=== PATIENT | male | born 1965 | race Caucasian/White ===

== ENCOUNTER 2017-02-09 11:17 | Observation (INO) | payer OTHER ==
--- NOTE | 2017-02-09 11:34 | UCPHY ---
H & P Patient Type: New Smoking Status: Former smoker Time Seen by Provider: 02/09/17 11:32 HPI/ROS: CHIEF COMPLAINT: Allergic reaction HPI: The patient is a 52-year-old male with a history of BOR syndrome with subsequent renal transplantation. The patient had dental work done yesterday and he took a dose of clindamycin as prophylaxis. This morning he awoke with severe total body itching, skin redness and hives. He describes feeling like his tongue was bigger than normal but is not have any difficulty swallowing. Patient states he had a mild similar reaction to clindamycin the last time he took it. REVIEW OF SYSTEMS: Aside from elements discussed in the HPI, a comprehensive 10-point review of systems was reviewed and is negative. PMH: Renal transplant. No history of heart disease that he knows of. SOCIAL HISTORY: Denies alcohol or drug abuse. FAMILY HISTORY: Reviewed, noncontributory PHYSICAL EXAM: General:Patient is alert, in no acute distress. ENT:Eyes are normal to inspection. Abnormal external ear shape noted. No drooling, normal voice, normal size tongue. Neck: Normal inspection. Full range of motion. Respiratory:No respiratory distress. Breath sounds normal bilaterally. Cardiovascular: Regular rate and rhythm. Strong peripheral pulses. Normal cap refill. Abdomen:The abdomen is nontender to palpation. There are no peritoneal signs. There are normal bowel sounds. Back: Normal to inspection. No tenderness to palpation. Skin: Diffuse erythema and mild urticaria is noted throughout trunk and extremities. Extremities: Normal appearance. Full range of motion. Neuro: Oriented x3. Normal motor function. Normal sensory function. (Bonilla Munoz) Constitutional: Initial Vital Signs Temperature (C) 36.6 C 02/09/17 11:28 Heart Rate 80 02/09/17 11:28 Respiratory Rate 18 02/09/17 11:28 Blood Pressure 125/80 H 02/09/17 11:28 O2 Sat (%) 97 02/09/17 11:28 O2 Delivery Mode Room Air O2 (L/minute) 2 Allergies/Adverse Reactions: clindamycin Allergy (Severe, Verified 02/09/17 17:49) Swelling/neck,face,throat Penicillins Allergy (Severe, Verified 02/09/17 17:49) Swelling/neck,face,throat Home Medications: Medication Instructions Recorded Allopurinol [Allopurinol (RX)] 300 mg PO HS 01/24/12 Losartan Potassium [Cozaar] 50 mg PO HS 01/24/12 Pantoprazole Sodium [Protonix 40mg 40 mg PO HS 01/24/12 (RX)] amLODIPine BESYLATE [Norvasc (RX)] 10 mg PO HS 01/24/12 Mycophenolate Mofetil [Cellcept 750 mg PO HS 11/05/12 250 mg (RX)] cycloSPORINE [Cyclosporine] 100 mg PO HS 02/09/17 predniSONE [predniSONE] 10 mg PO HS 02/09/17 Medical Decision Making - Diagnostics EKG Interpretation: Repeat EKG performed at 3:27 p.m.-indication ongoing chest discomfort with elevated troponin rule out interval change Sinus rhythm at 79 with normal intervals normal ST segments by my interpretation -overall assessment normal EKG please refer to trace InGaugeIt for complete read. ( Duke Ulloa) EKG was ordered and interpreted by myself. Please see Bag Borrow or Steal system for official reading. NSR, no ST elevation. (Bonilla Munoz) ED Course/Re-evaluation: 3:15 p.m. 3rd troponin is elevated to .064. Patient is comfortable with subtle discomfort still present in his chest-1/10 NTG dose increased to 1 inch of paste given persistent, subtle discomfort. I discussed his positive troponin with him explaining my concerns about myocardial injury and potential ongoing ischemia warranting admission. Patient agrees to be admitted to [facility] for further evaluation. Patient also treated with aspirin 324 mg PO After consulting Corey, mid-level practitioner & Dr. Wren, [place] [facility] cardiology - gave the patient 12.5 mg of metoprolol orally. They also requested that a echocardiogram be performed upon arrival at [facility] look for wall motion abnormalities. I spoke with Dr. Lin -hospitalist at [facility] who will accept the patient for admission to the [facility] and ordered the echo to be performed upon arrival. The patient is kept NPO with transfer pending. At 3:45 p.m. transport is called transfer the patient to the [facility] patient has persistent in mild-1 a 10 chest discomfort but declines further analgesia at this time and is hemodynamically stable (Duke Ulloa) With history of renal transplant, I consulted Dr. Trinidad from Nephrology to determine if epinephrine and solumedrol were safe for administration in a patient with history of renal transplant - he says they are from a renal standpoint. Shortly after administration of epinephrine, patient began to complain of severe substernal and epigastric pain. I ordered a stat ECG which is normal, without signs of ST elevation or arrhythmia. He also developed nausea and vomiting. We treated him with nitrogylcerin, zofran and morphine. Patient feeling better after meds at 12:15pm. Patient is declining transport to an ER at this time, but would prefer [facility] if necessary. 1:00pm, paitent still feeling better. VSS. Repeat ECG normal, again without signs of STEMI. I had an extensive discussion with the patient and recommended transfer to the ER for further monitoring, cardiology consultation and likely admission. He refuses. We agreed on a plan for further observation here and repeat troponin. 2:15pm - patient asymptomatic. Repeat troponin technically negative, but definitely higher than initial value. The patient continues to refuse transfer to the ER. He agrees to stay for one more rapid-cycle repeat troponin. 3:00pm - I have signed the patient out to Dr. Ulloa pending repeat troponin. (Bonilla Munoz) - Data Points Laboratory Results: Laboratory Results 02/09/17 11:41 02/09/17 11:41 Medications Given: Discontinued Medications Aspirin (Aspirin) 324 mg PO EDNOW ONE Stop: 02/09/17 15:30 Last Admin: 02/09/17 15:57 Dose: 324 mg Diphenhydramine HCl (Benadryl Injection) 50 mg IVP EDNOW ONE Stop: 02/09/17 11:47 Last Admin: 02/09/17 12:16 Dose: 50 mg Epinephrine HCl (Epinephrine) 0.3 mg IM EDNOW ONE Stop: 02/09/17 11:47 Last Admin: 02/09/17 12:17 Dose: 0.3 mg Sodium Chloride (Ns) 1,000 mls @ 0 mls/hr IV ONCE ONE PRN Reason: Wide Open Stop: 02/09/17 11:47 Last Admin: 02/09/17 12:00 Dose: 1,000 mls Sodium Chloride (Ns) 1,000 mls @ 3,000 mls/hr IV ONCE ONE Stop: 02/09/17 15:56 Last Admin: 02/09/17 15:45 Dose: 1,000 mls Methylprednisolone Sodium Succinate (Solu-Medrol) 125 mg IVP EDNOW ONE Stop: 02/09/17 11:47 Last Admin: 02/09/17 12:17 Dose: 125 mg Metoprolol Tartrate (Lopressor) 12.5 mg PO EDNOW ONE Stop: 02/09/17 15:35 Last Admin: 02/09/17 15:51 Dose: 12.5 mg Nitroglycerin (Nitro-Bid 2%) 0.5 inch TP EDNOW ONE Stop: 02/09/17 12:07 Last Admin: 02/09/17 12:09 Dose: 0.5 inch Ondansetron HCl (Zofran) 4 mg IVP EDNOW ONE Stop: 02/09/17 12:07 Last Admin: 02/09/17 12:08 Dose: 4 mg Departure - Departure Disposition: [facility] Inpatient Acute Clinical Impression: Anaphylaxis, Chest pain, Acute coronary syndrome Condition: Good Instructions: Anaphylaxis (ED) - PQRS PQRS Measurement: 134: Depression screening and followup, PRIME MD-PHQ2 (12 years and older) Over the last 2 weeks, how often have you been bothered by any of the following problems? 1. Feeling down, depressed, or hopeless? 2. Little interest or pleasure in doing things? Patient answered no to both 1 and 2 130: Documentation of medications. Reviewed all patient medications, doses, route and frequency. 226: Do you smoke? No. 51: 18 years old and older with diagnosis of COPD, spirometry performance. Spirometry not performed; equipment not available. Patient has no history of COPD 52: 18 years old and older with COPD and symptoms of COPD or FEV1<60% predicted prescribed a B Agonist. Spirometry not performed; equipment not available. (Bonilla Munoz)
[2017-02-09] MEDS ORDERED: methylPREDNISolone SOD SUCC 125 MG/2 ML VIAL IVP ONE (11:46)
[2017-02-09] MEDS ORDERED: NS 1,000 ML IV ONE ×2 (11:46→15:37)
--- NOTE | 2017-02-09 12:05 | CPEKG ---
Heart Rate: 90 RR Interval: 667 P-R Interval: 132 QRSD Interval: 90 QT Interval: 348 QTC Interval: 426 P Lewis: 77 QRS Lewis: 59 T Wave Lewis: 65 EKG Severity - OTHERWISE NORMAL ECG - EKG Impression: SINUS RHYTHM EKG Impression: ATRIAL PREMATURE COMPLEX Electronically Signed By: Lawrence Mancilla 10-Feb-2017 08:51:40
[2017-02-09] MEDS ORDERED: ONDANSETRON 4 MG/2 ML VIAL IVP ONE (12:06)
[2017-02-09] MEDS ORDERED: ONDANSETRON 4 MG/2 ML VIAL ONE (12:06)
[2017-02-09] MEDS ORDERED: NITROGLYCERIN 2% 1 GM PACKET TP ONE (12:06)
[2017-02-09 12:13] LABS: % IMMATURE GRANULYOCYTES 0.4 % (0.0-1.1); ABSOLUTE IMMATURE GRANULOCYTES 0.05 10^3/uL (0.00-0.10); ADD DIFF? NO; ADD MORPH? NO; ADD SCAN? NO; ATYPICAL LYMPHOCYTE FLAG 0 (0-99); FRAGMENT RBC FLAG 0 (0-99); HEMATOCRIT 39.5 % (40.0-51.0); HEMOGLOBIN 13.4 g/dL (13.7-17.5); LEFT SHIFT FLG 0 (0-99); LIPEMIA HEMOLYSIS FLAG 90 (0-99); MEAN CELL HEMOGLOBIN 32.1 pg (27.9-34.1); MEAN CELL HEMOGLOBIN CONCENTR. 33.9 g/dL (32.4-36.7); MEAN CELL VOLUME 94.7 fL (81.5-99.8); PLATELET CLUMPS FLAG 10 (0-99); PLATELET COUNT 314 10^3/uL (150-400); RED BLOOD CELL COUNT 4.17 10^6/uL (4.40-6.38); RED CELL DISTRIBUTION WIDTH 13.9 % (11.5-15.2)
[2017-02-09 12:24] LABS: ANION GAP 13 mEq/L (8-16); CALCIUM 8.8 mg/dL (8.5-10.4); CARBON DIOXIDE 20 mEq/l (22-31); CHLORIDE 106 mEq/L (97-110); CREATININE 1.1 mg/dL (0.7-1.3); GLOMERULAR FILTRATION RATE > 60; GLUCOSE 77 mg/dL (70-100); POTASSIUM 3.9 mEq/L (3.5-5.2); SODIUM 139 mEq/L (134-144)
[2017-02-09 12:39] LABS: TROPONIN I < 0.012 ng/mL (0-0.034)
--- NOTE | 2017-02-09 12:51 | CPEKG ---
Heart Rate: 83 RR Interval: 723 P-R Interval: 144 QRSD Interval: 90 QT Interval: 380 QTC Interval: 447 P Harrison: 66 QRS Harrison: 29 T Wave Harrison: 50 EKG Severity - NORMAL ECG - EKG Impression: SINUS RHYTHM Electronically Signed By: Lawrence Mancilla 10-Feb-2017 08:52:09
[2017-02-09 15:10] LABS: TROPONIN I 0.064 ng/mL (0-0.034)
[2017-02-09] MEDS ORDERED: ASPIRIN 81 MG CHEWABLE TAB PO ONE (15:29)
--- NOTE | 2017-02-09 15:29 | CPEKG ---
Heart Rate: 79 RR Interval: 759 P-R Interval: 140 QRSD Interval: 86 QT Interval: 364 QTC Interval: 418 P Lerona: 60 QRS Lerona: 23 T Wave Lerona: 43 EKG Severity - NORMAL ECG - EKG Impression: SINUS RHYTHM Electronically Signed By: Duke Ulloa 09-Feb-2017 15:53:35
[2017-02-09] MEDS ORDERED: METOPROLOL TARTRATE 25 MG TAB PO ONE (15:34)
[2017-02-09] MEDS ORDERED: ACETAMINOPHEN 325 MG TAB PO PRN (15:37)
[2017-02-09] MEDS ORDERED: ONDANSETRON DISINTEGRATING 4 MG TAB PO PRN (15:37)
[2017-02-09] MEDS ORDERED: diphenhydrAMINE 25 MG CAP PO PRN (15:37)
[2017-02-09] MEDS ORDERED: ONDANSETRON 4 MG/2 ML VIAL IVP PRN (15:37)
--- NOTE | 2017-02-09 18:42 | GHP ---
[f rep st] HISTORY AND PHYSICAL DATE OF ADMISSION: 02/09/2017 CHIEF COMPLAINT: Chest pain. HISTORY OF PRESENT ILLNESS: A 52-year-old male with a history of BOR syndrome, who is status post r enal transplant and received prophylactic clindamycin for a dental appointment for which he develope d a full body rash and ultimately throat swelling that prompted his visiting an urgent care. In the urgent care, patient received appropriate therapy for allergic reaction which include epinephrine. Soon after the administration of epinephrine, the patient developed severe substernal chest pain th at he described as 10/10, like a horse kicking him in the chest, and associated shortness of breath, some dizziness, nausea, and vomiting. The patient had some relief in his symptoms and then recurre nce. Laboratories were checked in the acute care. The patient was found to have a minimal elevatio n in his troponin and was therefore transitioned from acute care with nitroglycerin paste on his giovanny st over to [facility] for further evaluation. Upon arrival to the PCU, the patient is still experiencing 1/10 epigastric, subxiphoid chest discomfort. Denies any shortness of breath. Denies any active nausea. No vomiting. Denies abdominal pain. Reports medication compliance at home with his meds, and denies any difficulty with these medications. The patient does not have chr onic limitations in his activity secondary to chest pain or shortness of breath. The patient denies any changes in his bowel habits, urinary complications, or lower extremity edema. The patient has taken clindamycin one time before and did develop some rash at the time, but not any of the shortnes s of breath and tongue swelling. Those symptoms have resolved since his treatment in the urgent car e. PAST MEDICAL HISTORY: 1. BOR syndrome. 2. Status post renal transplant. 3. Hypertension since his transplant. SOCIAL HISTORY: Negative for tobacco. Rare alcohol. Maybe 1 drink twice a week. No illicit drugs or marijuana. FAMILY HISTORY: Negative for any kidney problems or transplant. ADVANCED DIRECTIVES: Patient is full cor, full tube. REVIEW OF SYSTEMS: A 10-point review of systems is negative with the exception of that reported in the HPI. PHYSICAL EXAMINATION: VITAL SIGNS: Blood pressure 112/80, heart rate 80, respiratory rate 18, 97% on 2 L, 36.6. GENERAL: This is a very healthy-appearing, middle-aged male in no acute distress. H EENT: Notable for moist mucous membranes. Eye exam is negative for any icterus. CARDIAC: Patient is regular rate and rhythm. No murmurs, gallops, or rubs. PULMONARY: Patient has good respirator y effort. Clear to auscultation bilaterally. GASTROINTESTINAL: Positive bowel sounds. Abdomen is soft. MUSCULOSKELETAL: Negative for any lower extremity edema. SKIN: Exam is negative for any r ashes. NEUROLOGIC: He is alert and oriented x3. PSYCHIATRIC: He is pleasant and cooperative on i nterview and examination. DATA: White count 14.1, hematocrit 39.5, platelets of 314. Troponin was less than 0.012 and bumped to 0.06. Creatinine was 1.1. Chest x-ray, which I personally reviewed and interpreted, shows no acute infiltrates or edema. EKG, which I personally reviewed and interpreted, shows sinus rhythm, normal axis, intervals with no acute ST-T changes. ASSESSMENT AND PLAN: This is a 52-year-old male with branchiootorenal syndrome who presents with ch est pain after administration of epinephrine for an allergic reaction. 1. Acute chest pain. The patient's EKG is without changes. Mild troponin elevation certainly conc erning for possible flow limiting stenosis in his coronary system provoked by basal spasm with epine phrine. The patient will be admitted, have serial troponins, followed, and have telemetry monitorin g. Cardiology has been consulted and we are ordering a stat echocardiogram. If there segmental wal l motion abnormalities, the patient will be taken directly to catheterization. Otherwise monitored overnight for evaluation in the morning. 2. Branchiootorenal syndrome. The patient will continue on his normal immunosuppressive regimen fo r his renal transplant after his medications are reconciled. 3. Hypertension. Patient is presenting with normal blood pressures at this time. Again, we will c ontinue home medications if appropriate. 4. Leukocytosis. I suspect this is likely provoked by the steroids the patient received in the urg ent care. We will recheck a CBC in the morning to verify that it comes down. He does not have othe r concerning symptoms for occult infection. 5. Prophylaxis with Lovenox. 6. Diet: Cardiac. DISPOSITION: I expect in less than 2 midnights if the patient's monitoring is stable and risk strat ification is successful. I have discussed the case with the urgent care physician. Patient will be triaged to the PCU for cardiac monitoring. /[id number]/MODL
[2017-02-09] MEDS: ENOXAPARIN 40 MG/0.4 ML SYR SC SCH (19:04)
[2017-02-09] MEDS ORDERED: cycloSPORINE 100 MG CAP PO SCH ×2 (21:07→21:30)
[2017-02-09] MEDS ORDERED: MYCOPHENOLATE MOFETIL 250 MG CAP PO SCH (21:30)
[2017-02-09] MEDS ORDERED: predniSONE 10 MG TAB PO SCH (21:30)
[2017-02-09] MEDS ORDERED: ALLOPURINOL 300 MG TAB PO SCH (21:30)
[2017-02-09] MEDS ORDERED: PANTOPRAZOLE SODIUM 40 MG TAB PO SCH (21:30)
[2017-02-09] MEDS ORDERED: LOSARTAN POTASSIUM 50 MG TAB PO SCH (21:30)
[2017-02-10 04:49] LABS: % IMMATURE GRANULYOCYTES 0.6 % (0.0-1.1); ABSOLUTE IMMATURE GRANULOCYTES 0.11 10^3/uL (0.00-0.10); ADD DIFF? NO; ADD MORPH? NO; ADD SCAN? NO; ATYPICAL LYMPHOCYTE FLAG 0 (0-99); FRAGMENT RBC FLAG 0 (0-99); HEMATOCRIT 34.9 % (40.0-51.0); HEMOGLOBIN 11.6 g/dL (13.7-17.5); LEFT SHIFT FLG 10 (0-99); LIPEMIA HEMOLYSIS FLAG 80 (0-99); MEAN CELL HEMOGLOBIN 32.1 pg (27.9-34.1); MEAN CELL HEMOGLOBIN CONCENTR. 33.2 g/dL (32.4-36.7); MEAN CELL VOLUME 96.7 fL (81.5-99.8); MEAN PLATELET VOLUME 11.1 fL (8.7-11.7); PLATELET CLUMPS FLAG 0 (0-99); PLATELET COUNT 243 10^3/uL (150-400); RED BLOOD CELL COUNT 3.61 10^6/uL (4.40-6.38); RED CELL DISTRIBUTION WIDTH 13.8 % (11.5-15.2)
[2017-02-10 07:22] VITALS: TEMP 98
--- NOTE | 2017-02-10 08:41 | ECHO ---
[id number] + + [address] : : [place] [address] : : [phone] + Adult Echocardiographic Report + ----+ :Name: LUCIO MASTERSON DStudy Date: 02/09/2017 05:48 PM : : Hospital Admission Number: [id number] Location: 219: :: 1965 Gender: Male Height: 69 in : :Age: 52 yrs Race: WH Weight: 177 lb : :Reason For Study: Eval LV Fx : : BSA: 2.0 meters2 : :History: Chest Pain : + ----+ MMode/2D Measurements \T\ Calculations IVSd: 0.90 cm LVIDd: 4.6 cm FS: 44.2 % Ao root diam: 3.2 cm LVPWd: 1.1 cm LVIDs: 2.6 cm EDV(Teich): 99.4 ml ACS: 1.7 cm ESV(Teich): 24.3 ml EF(Teich): 75.5 % Normal Measurement Values: + + :LVIDd (3.5-5.7cm) IVSd (0.6-1.1cm) LVPWd (0.6-1.1cm) Aortic Root (2.0-3.7cm)Left Atrium (1.5-4.0cm): :LV Vol(d) (76-115ml) LV Vol(s) (29-48ml) Ejec Fraction (50-65%)PV Nain (0.6- 1.2m/s) TV Nain (0.4-1.0m/s) : :MV E Nain (0.8-1.0m/s)MV A Nain (0.3-1.0m/s)LVOT Nain (0.7-1.2m/s) Asc Ao Nain ( 0.9-1.8m/s) : + + Doppler Measurements \T\ Calculations MV E max nain: Ao V2 max: LV V1 max: PA V2 max: 73.1 cm/sec 139.8 cm/sec 65.2 cm/sec 85.5 cm/sec MV A max nain: Ao max P.8 mmHgLV V1 max PG: PA max P.4 cm/sec 1.7 mmHg 2.9 mmHg MV E/A: 0.83 TR max nain: 257.9 cm/sec TR max P.6 mmHg RAP systole: 5.0 mmHg RVSP(TR): 31.6 mmHg Left Ventricle The left ventricle is normal in size. There is normal left ventricular wall thickness. The left ventricular ejection fraction is normal. There is Doppler evidence for diastolic dysfunction. Ejection Fraction = 72%. No regional wall motion abnormalities noted. Right Ventricle The right ventricle is normal in size and function. Atria The left atrial size is normal. Right atrial size is normal. Mitral Valve The mitral valve is normal in structure and function. There is no evidence of mitral valve prolapse. There is no mitral valve stenosis. There is no mitral regurgitation noted. Tricuspid Valve Normal tricuspid valve. There is trace tricuspid regurgitation. Right ventricular systolic pressure is normal. Aortic Valve The aortic valve is not well visualized. There is no aortic stenosis. There is no aortic insufficiency. Pulmonic Valve The pulmonic valve is normal in structure and function. There is no pulmonic valvular regurgitation. Great Vessels The aortic root is normal size. Pericardium/Pleural There is no pericardial effusion. Conclusion A complete two-dimensional transthoracic echocardiogram was performed (2D, M-mode, Doppler and color flow Doppler). The left ventricular ejection fraction is normal. Ejection Fraction = 72%. There is Doppler evidence for diastolic dysfunction. The left atrial size is normal. The aortic valve is not well visualized. The mitral valve is normal in structure and function. There is trace tricuspid regurgitation. Right ventricular systolic pressure is normal. There is no pericardial effusion. No prior echo Final Reading Physician: Dr Yin Davis electronically signed on 02/10/2017 08:41 AM Ordering Physician: Springstead, Corey Performed By: Ferny Varghese RDCS
[2017-02-10] MEDS: ENOXAPARIN 40 MG/0.4 ML SYR SC SCH (09:16)
--- NOTE | 2017-02-10 11:20 | PDCARST ---
CAR Stress Test Results Type of Stress Test: Nuclear TM stress test Indication: chest pain Description of Procedure: After informed consent was obtained, pt was established to ECG, blood pressure, oximetry and heart rate monitoring. At b/l, pt is in SR with sinus arrhythmia, BP 120/80, HR 80, and O2 sat 99% on RA. Pt exercised for a total of 9:30. There were no significant ECG changes. Pt achieved HR of 150, which is 88% of MPHR for age. No cp noted. Peak BP was 164/ 70. No arrhythmias throughout testing. In recovery, blood pressure, ECG, HR and oximetry remained wnl. Impression: Low risk TM stress test with DTS +9 Conclusion: Await nuclear images.
[2017-02-10 11:59] VITALS: BP 120/78; PULSE 82; RESP 20; O2SAT 97
--- NOTE | 2017-02-10 12:09 | GCON ---
[f rep st] CONSULTATION CARDIOLOGY CONSULTATION. We are asked by Dr. Caity Lin to evaluate the patient for his chest pain episode. HISTORY OF PRESENT ILLNESS: The patient is a 52-year-old male, with a history of BOR syndrome statu s post renal transplant, dyslipidemia, hypertension, who recently had a dental procedure. He was gi diamond postprocedural antibiotics with clindamycin for an apparent dental infection. On the next day h e developed a full body rash with throat swelling, for which he was seen in the Urgent Care. In the Urgent Care he was given epinephrine, and within a very short time after the administration he star devonte feeling a substernal chest pain, 10/10, with associated shortness of breath, dizziness, nausea a nd vomiting. Symptoms lasted a few minutes, then went away but then recurred for a second episode. He was transferred from the Urgent Care to [facility] for further evaluation. He has been admitted to the PCU, and has had serial enzymes, which have found a minimally elevated troponi n. Echo shows no regional wall motion abnormality. We are therefore asked to evaluate patient give n the elevated troponin and severity of his chest discomfort. Patient is seen in the treadmill stress test room. He currently denies any chest pain, dyspnea, PND , or orthopnea. 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 He has to walk quite a bit throughout the day and has not been noting any chest pains or dyspnea. He repo rts his blood pressure is typically well-controlled on his medications. He drinks occasional beers, and his cholesterol is followed by his primary care physician. He is a nonsmoker. REVIEW OF SYSTEMS: As per HPI. A complete 10-point review of systems was obtained and is negative except for what is dictated. PAST MEDICAL HISTORY: 1. BOR syndrome with resultant renal transplant, and ear surgeries. 2. Hypertension. 3. Dyslipidemia. FAMILY HISTORY: Positive for renal disease and loss of hearing due to BOR syndrome. SOCIAL HISTORY: Patient is , he has adult children. One of his sons has partial hearing los s, and his grandson is born with complete hearing loss. He reports occasional alcohol intake. OUTPATIENT MEDICATIONS: Include prednisone, cyclosporine, amlodipine, pantoprazole, CellCept, losar lamb, allopurinol. ALLERGIES: To clindamycin and penicillin. PHYSICAL EXAM: VITAL SIGNS: BP of 107/64, heart rate 86, respirations 14, O2 saturation 93% on alexis m air, temperature of 98 degrees Fahrenheit. GENERAL: He is a very pleasant male in no apparent di stress. HEENT: Eyes are without scleral icterus. HEART: Regular rate and rhythm with no rubs, ga llops, or murmurs. LUNGS: Clear. ABDOMEN: Nontender, nondistended. SKIN: With diffuse erythema affecting his trunk, neck, face and extremities. A 12-lead ECG, personally interpreted, demonstrates sinus rhythm without ischemia, from 02/09/2017. Chest x-ray reviewed, shows a negative chest x-ray. LABORATORY DATA: CBC with WBC of 19.1, hemoglobin 11.6, hematocrit 34.9, platelet count 243. BMP w ith sodium of 139, potassium 3.9, chloride 106, CO2 of 20, BUN 16, creatinine 1.1. Troponin 0.012, then 0.021, then 0.064, then 0.078. Echocardiogram results reviewed, and that shows EF of 72 with D oppler evidence of diastolic dysfunction, normal left atrial size, normal mitral valve structure and function. There is trace TR, RVSP is within normal limits. IMPRESSION AND PLAN: The patient is a 52-year-old male who is admitted after administration of epin ephrine for an allergic reaction. He has a minimally elevated troponin. 1. Chest pain. Likely related to demand ischemia from allergic reaction and administration of an e pinephrine. He has a minimally elevated troponin. Echo is without wall motion abnormality. We ernestina williamson proceeded to a nuclear treadmill stress test, which shows excellent exercise tolerance. We will a wait nuclear images. Likely if he has no overt ischemia on his nuclear stress test he may be discha rged with aspirin for his medical management, if permissible by his transplant doctors. He states garrett williamson does have dyslipidemia, but is not currently on a statin by my review of his home medications. 2. Hypertension, blood pressure appears well-controlled. He may continue his home amlodipine and l osartan for hypertension management. /[id number]/MODL
[2017-02-10] MEDS ORDERED: HYDROCORTISONE 2.5% 30 GM CRTUBE TP SCH (12:15)
--- NOTE | 2017-02-10 15:23 | PDDCSUM ---
Discharge Summary Discharge Summary: DISCHARGE SUMMARY FOLLOW-UP ITEMS: Follow-up rash DATE OF ADMISSION: 02/09/2017 DATE OF DISCHARGE: 02/10/2017 DISCHARGE DIAGNOSES: 1. Acute allergic reaction 2. Acute chest pain 3. 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 CONSULTATIONS: Cardiology PROCEDURES / IMAGING: Nuclear medicine stress test with no inducible ischemia, echocardiogram demonstrating diastolic dysfunction but no other wall motion abnormalities CHIEF COMPLAINT: Acute chest pain SUBJECTIVE: Patient is feeling well at time of discharge, he continues to have a rash on his anterior chest and back PHYSICAL EXAM ON DISCHARGE: Systolic blood pressure 110, heart rate 80, afebrile overnight, satting well on room air, confluent blanchable raised rash over his chest and back, spreading over approximately 80% of the surface, with no ulcerations and no sloughing, lungs are clear to auscultation bilaterally on inspiration and expiration LABS ON DISCHARGE: Troponin 0.08, white blood count 33737, hemoglobin 11.6 HOSPITAL COURSE BY PROBLEM: 1. Acute allergic reaction. The patient is experiencing acute allergic reaction in the setting of clindamycin taken for a dental procedure, resulting in diffuse rash as well as were perceived as early anaphylactic symptoms. The patient received epinephrine and then experienced subsequent chest pain. He also received systemic steroids resulting in leukocytosis. He does not require any ongoing use of systemic steroids given that he does not have any pulmonary or upper airway symptoms. His only lingering symptom is rash and should respond to high potency topical steroid, hydrocortisone 2.5% provided. I recommended that he avoid clindamycin in the future and that he follow up with either his PCP or Dr. Tovar next week to re-evaluate his rash. If his rash is not improving, then up titration of his systemic steroids can be pursued. 2. Acute chest pain. Most likely secondary to above, he had abnormal troponin levels in the setting of epinephrine administration. He underwent stress testing and echocardiogram as well as Cardiology consultation, and after neither these 2 modalities demonstrated any significant findings, they recommended primary CAD prevention with aspirin 81 mg and no further interventions. 3. Broncho renal syndrome. The patient will be continued on all his home medications and follow up with Dr. Tovar next week. DISCHARGE MEDICATIONS: Please see official discharge medication reconciliation sheet in chart aspirin 81 mg daily. DISCHARGE INSTRUCTIONS: Follow up with Dr. Tovar next week, and/or Dr. Andujar.
[2017-02-10] MEDS ORDERED: PANTOPRAZOLE SODIUM 40 MG TAB PO SCH (21:00)
[2017-02-10] MEDS ORDERED: cycloSPORINE 100 MG CAP PO SCH (21:00)
[2017-02-10] MEDS ORDERED: predniSONE 10 MG TAB PO SCH (21:00)
[2017-02-10] MEDS ORDERED: MYCOPHENOLATE MOFETIL 250 MG CAP PO SCH (21:00)
[2017-02-10] MEDS ORDERED: ALLOPURINOL 300 MG TAB PO SCH (21:00)
== END 2017-02-10 16:49 | disposition home or self-care (01) ==
LOC: CED 11:17 → CEDHOLD 15:39 → F2W 17:02
PROVIDERS: ADMIT Hospitalist; ATTEND Internal Medicine
DX: L27.0 Generalized skin eruption due to drugs and medicaments taken internally (principal); T36.8X5A Adverse effect of other systemic antibiotics, initial encounter; R07.9 Chest pain, unspecified; I15.0 Renovascular hypertension; Q87.89 Other specified congenital malformation syndromes, not elsewhere classified; Z94.0 Kidney transplant status; E78.5 Hyperlipidemia, unspecified; Z79.52 Long term (current) use of systemic steroids
CPT/HCPCS: 71010; 78452; 93005; 93017; 93306; 96361; 96374; 96375; 99213; A9500; G0378; 80048-PO; 84484-PO; 85025-PO; 93010-PO; 99205-PO; G0463-PO; J0171; J1200; J1650; J2405; J7502